=== PATIENT | female | born 1980 ===

== ENCOUNTER 2021-12-13 11:50 | Outpatient (CLI) | payer BC | END 2021-12-13 12:26 | disposition home or self-care (01) | LOC: RAD 11:50 | PROVIDERS: ATTEND Internal Medicine | DX: E78.1 Pure hyperglyceridemia (principal); E55.9 Vitamin D deficiency, unspecified; N64.4 Mastodynia; Z12.31 Encounter for screening mammogram for malignant neoplasm of breast; Z12.11 Encounter for screening for malignant neoplasm of colon ==

== ENCOUNTER 2023-03-01 11:22 | Outpatient (CLI) | payer BC | END 2023-03-01 11:29 | disposition home or self-care (01) | LOC: MAMO-SONO 11:22 | PROVIDERS: ATTEND Internal Medicine | DX: Z12.31 Encounter for screening mammogram for malignant neoplasm of breast (principal); N64.4 Mastodynia ==

== ENCOUNTER 2023-12-04 14:38 | Outpatient (CLI) | payer BC | END 2023-12-04 14:43 | disposition home or self-care (01) | LOC: SONOGRAMA 14:38 | PROVIDERS: ATTEND Internal Medicine | DX: E04.1 Nontoxic single thyroid nodule (principal) ==

== ENCOUNTER 2025-03-31 14:57 | Outpatient (CLI) | payer BC | END 2025-03-31 15:04 | disposition home or self-care (01) | LOC: MAMO-SONO 14:57 | PROVIDERS: ATTEND Obstetrics & Gynecology | DX: N60.11 Diffuse cystic mastopathy of right breast (principal); N60.12 Diffuse cystic mastopathy of left breast; Z12.31 Encounter for screening mammogram for malignant neoplasm of breast; Z12.39 Encounter for other screening for malignant neoplasm of breast ==